=== PATIENT | female | born 1990 | race Caucasian/White ===

== ENCOUNTER 2021-07-03 19:32 | Emergency (ER) | payer OTHER ==
[~2021-07-03] VITALS: Ht 170.2 cm; Wt 72.6 kg
[2021-07-03] MEDS ORDERED: IBU600 MG PO (21:22)
[2021-07-03 22:01] VITALS: BP 106/57
== END 2021-07-03 22:02 | disposition home or self-care (01) ==
LOC: ER 19:32
DX: S86.001A Unspecified injury of right Achilles tendon, initial encounter (principal); W21.05XA Struck by basketball, initial encounter; Y93.67 Activity, basketball; Y92.89 Other specified places as the place of occurrence of the external cause; Y99.8 Other external cause status